=== PATIENT | male | born 1925 | race Caucasian/White ===

== ENCOUNTER → 2017-02-27 | Outpatient (CLI) | payer MEDICARE, OTHER ==
[~2017-02-27] MED LIST: ACETAMINOPHEN W1 TA6 PO; ASPIRIN 81M81 MG/TA2 PO; COLACE 100100 MG/CAP PO; DITROPAN 5MG TAB5 MG PO; LEVAQUIN 750MG750 M1 PO; MUCINEX 60600 MG/TA1 PO; PROSCAR 5MG5 MG PO; SINGULAIR 110 MG/TAB PO; SYNTHROID0.125 MG/T PO; ULTRAM 50MG TAB50 MG PO; ZANTAC 150MG T150 MG PO; ZYRTEC 10MG10 MG PO
[2017-02-27 17:00] LABS: PH 6 (5-8); SQUAMOUS EPITHELIAL None Seen /hpf; URINE APPEARANCE Turbid; URINE BACTERIA None Seen /hpf; URINE BILIRUBIN Negative (NEGATIVE); URINE BLOOD 1+ (NEGATIVE); URINE COLOR Yellow; URINE GLUCOSE Negative (NEGATIVE); URINE KETONE Negative (NEGATIVE); URINE RBC >50 /hpf; URINE WBC >50 /hpf
== END ==
LOC: ZLAB.STJ 15:51
PROVIDERS: Family Medicine
DX: R82.99 Other abnormal findings in urine (principal)

== ENCOUNTER → 2017-03-09 | Outpatient (CLI) | payer MEDICARE, OTHER | LOC: ZLAB.STJ 09:19 | DX: N39.0 Urinary tract infection, site not specified (principal); Z02.89 Encounter for other administrative examinations ==